=== PATIENT | female | born 1995 | race African-American/Black ===

== ENCOUNTER 2018-10-30 15:54 | Emergency (ER) | payer SELFPAY ==
[~2018-10-30] VITALS: Ht 170.2 cm; Wt 80.0 kg
[2018-10-30] MEDS ORDERED: SODIUM CHLORIDE 0.9% 1,000 ML IV ONE (16:28)
[2018-10-30 16:59] LABS: BASOPHILS % 0.6 % (0.0-2.0); EOSINOPHILS % 2.9 % (0.0-5.0); HEMATOCRIT. 37.4 % (36.0-48.0); HEMOGLOBIN. 13.1 g/dL (12.0-16.0); LYMPHOCYTES % 29.5 % (20.0-50.0); MEAN CORPUSCULAR HEMOGLOBIN 29.8 pg (28.0-32.0); MEAN CORPUSCULAR VOLUME 85.1 fL (81.0-99.0); MEAN PLATELET VOLUME 7.9 fl (7.4-10.4); MONOCYTES % 6.3 % (2.0-8.0); NEUTROPHILS % 60.7 % (40.0-76.0); PLATELET 293 x1000/uL (130-400); RED CELL DISTRIBUTION WIDTH 12.1 % (11.6-14.6)
[2018-10-30 17:02] LABS: CHLORIDE 104 mEq/L (98-107)
[2018-10-30 17:14] LABS: HCG SCREEN NEGATIVE
[2018-10-30 18:20] VITALS: BP 118/60
== END 2018-10-30 18:39 | disposition home or self-care (01) ==
LOC: ER 15:54
DX: R42 Dizziness and giddiness (principal); R55 Syncope and collapse; Z88.8 Allergy status to other drugs, medicaments and biological substances
CPT/HCPCS: 36415; 71045; 80053; 81025; 83880; 84484; 84703; 85025; 93005; 96360; 99284; J7030

== ENCOUNTER 2020-06-03 11:11 | Emergency (ER) | payer MEDICAID ==
[~2020-06-03] VITALS: Ht 172.7 cm; Wt 82.0 kg
[2020-06-03] MEDS ORDERED: SODIUM CHLORIDE 0.9% 1,000 ML IV ONE (12:45)
[2020-06-03 13:07] LABS: BASOPHILS % 0.3 % (0.0-2.0); EOSINOPHILS % 0.6 % (0.0-5.0); HEMATOCRIT. 34.4 % (36.0-48.0); HEMOGLOBIN. 11.8 g/dL (12.0-16.0); MEAN CORPUSCULAR HEMOGLOBIN 29.7 pg (28.0-32.0); MEAN CORPUSCULAR VOLUME 86.2 fL (81.0-99.0); MEAN PLATELET VOLUME 7.9 fl (7.4-10.4); MONOCYTES % 5.5 % (2.0-8.0); NEUTROPHILS % 84.6 % (40.0-76.0); PLATELET 330 x1000/uL (130-400); RED BLOOD CELL COUNT 3.98 mill/uL (4.2-5.4); RED CELL DISTRIBUTION WIDTH 11.9 % (11.6-14.6)
[2020-06-03 13:09] LABS: CHLORIDE 102 mEq/L (98-107)
[2020-06-03] MEDS ORDERED: ACETAMINOPHEN 650MG/20.3ML UDC PO ONE (14:15)
[2020-06-03] MEDS ORDERED: METHOCARBAMOL 500MG TABLET PO ONE (14:15)
[2020-06-03 14:48] VITALS: BP 97/59
[2020-06-03] MEDS ORDERED: METH-653 MT (14:59)
== END 2020-06-03 15:18 | disposition home or self-care (01) ==
LOC: ER 11:13
DX: R07.89 Other chest pain (principal); B34.9 Viral infection, unspecified; M54.6 Pain in thoracic spine; R06.02 Shortness of breath; R05 Cough; Z88.8 Allergy status to other drugs, medicaments and biological substances; Z79.899 Other long term (current) drug therapy
CPT/HCPCS: 36415; 71045; 80053; 81025; 85025; 85379; 87040; 93005; 96360; 99285; J7030; Z7610

== ENCOUNTER 2021-10-21 19:12 | Emergency (ER) | payer MEDICAID ==
[~2021-10-21] VITALS: Ht 172.7 cm; Wt 90.0 kg
[~2021-10-21 19:12] MED LIST: METH-653 MT
[2021-10-21 19:30] VITALS: BP 115/73
== END 2021-10-22 03:50 | disposition left against medical advice (07) ==
LOC: ER 19:12
DX: R20.8 Other disturbances of skin sensation (principal)
CPT/HCPCS: 99281